=== PATIENT | female | born 1975 | race Caucasian/White ===

== ENCOUNTER 2022-12-30 15:51 | Emergency (ER) | payer OTHER ==
[2022-12-30 16:12] VITALS: BP 128/72; PULSE 89; RESP 18; TEMP 98.9; BMI 44.2
== END 2022-12-30 19:01 | disposition home or self-care (01) ==
LOC: FER 15:51
DX: T17.208A Unspecified foreign body in pharynx causing other injury, initial encounter (principal)
CPT/HCPCS: 70160-TC-FY; 70360-TC-FY; 99284-25